=== PATIENT | male | born 1935 | race Caucasian/White ===

== ENCOUNTER 2017-09-05 09:47 | Emergency (ER) | payer MEDICARE, OTHER ==
--- NOTE | 2017-09-05 10:27 | ED Physician Documentation ---
History of Present Illness - Stated complaint Stated Complaint: HI BP - Chief complaint Chief Complaint: General - History obtained from History obtained from: Patient, Family - History of Present Illness Timing: Today - Additonal information Additional information: 81-year-old otherwise healthy male has developed a feeling of lightheadedness and dizziness and today he checked his blood pressure it was 165/95 and he is coming to the emergency department concerned about the elevation in his blood pressure. Yesterday he did have excessive physical activity he mowed his lawn and help move some furniture his seems quite concerned about the amount of activity he did and she wants him to rest today. The patient himself states that he does not usually feel this way and he is not very good about drinking fluids. Review of Systems Constitutional: denies: Fever, Chills, Myalgias, Fatigue Eyes: denies: Decreased vision Ears: denies: Ear pain Nose: denies: Rhinorrhea / runny nose, Congestion Throat: denies: Sore throat Cardiac: denies: Chest pain / pressure, Palpitations Respiratory: denies: Dyspnea, Cough GI: reports: Diarrhea. denies: Abdominal Pain, Nausea, Vomiting, Constipation : denies: Dysuria, Frequency Skin: denies: Rash Musculoskeletal: denies: Neck pain, Back pain, Extremity pain, Extremity swelling Neurologic: reports: Other (Dizziness and lightheadedness). denies: Generalized weakness, Focal weakness, Numbness, Headache, Head injury PD PAST MEDICAL HISTORY - Past Surgical History Past Surgical History: Yes Cardiovascular: AAA - Present Medications Home Medications: Ambulatory Orders Medication Instructions Recorded Confirmed Alysha Lawler 09/05/17 - Allergies Allergies/Adverse Reactions: Allergies Allergy/AdvReac Type Severity Reaction Status Date / Time No Known Drug Allergies Allergy Verified 09/05/17 09:55 - Social History Does the pt smoke?: No Smoking Status: Never smoker Does the pt drink ETOH?: No - Immunizations Immunizations are current?: Yes PD ED PE NORMAL - Vitals Vital signs reviewed: Yes (Hypertensive mild) - General General: Alert and oriented X 3, No acute distress, Well developed/nourished - HEENT HEENT: Atraumatic, PERRL, EOMI, Other (Both TMs are markedly erythematous with retained landmarks) - Neck Neck: Supple, no meningeal sign, No bony TTP - Cardiac Cardiac: RRR, No murmur - Respiratory Respiratory: No respiratory distress, Clear bilaterally - Abdomen Abdomen: Soft, Non tender - Back Back: No CVA TTP, No spinal TTP - Derm Derm: Normal color, Warm and dry, No rash - Extremities Extremities: No deformity, No edema - Neuro Neuro: No motor deficit, No sensory deficit Eye Opening: Spontaneous Motor: Obeys Commands Verbal: Oriented GCS Score: 15 - Psych Psych: Normal mood, Normal affect Results - Vitals Vitals: Vital Signs - 24 hr 09/05/17 09:50 Temperature 36.3 C L Heart Rate 57 L Respiratory 16 Rate Blood Pressure 154/83 H O2 Saturation 99 Oxygen O2 Source Room air Procedures - IVC sono (time) 1020 Bedside IVC sono: IVC measures (cm) (1.27), IVC collapsed c insp (cm) (complete) , Dehydration (est 1 liter) PD MEDICAL DECISION MAKING - ED course Complexity details: reviewed old records, reviewed results, re-evaluated patient , considered differential, d/w patient, d/w family ED course: Previously well 81-year-old male without a history of hypertension has mildly elevated blood pressure today. He did have a significant salt load last night to include a lot of chips and [place] food and he did not drink much in the way of fluids yesterday. He is found to be dehydrated on interrogation the inferior vena cava. His blood pressure although elevated is not in the range of normal causes symptoms for anybody. I suspect his symptoms are related to his dehydration and the dehydration related to excessive activity yesterday without adequate oral intake. His blood pressure may be elevated due to the salt load and I have recommended he push the fluids and repeat blood pressure check. Departure - Departure Disposition: 01 Home, Self Care Clinical Impression: Dehydration Instructions: ED Dehydration Follow-Up: Idalia Rodriguez MD [Primary Care Provider] -
[2017-09-05 10:35] VITALS: BP 118/76
== END 2017-09-05 10:34 | disposition home or self-care (01) ==
LOC: ED 09:47
DX: E86.0 Dehydration (principal); R03.0 Elevated blood-pressure reading, without diagnosis of hypertension; I71.4 Abdominal aortic aneurysm, without rupture
CPT/HCPCS: 99283

== ENCOUNTER 2018-10-08 08:57 | Emergency (ER) | payer MEDICARE, OTHER ==
--- NOTE | 2018-10-08 10:32 | ED Physician Documentation ---
PD HPI HEENT - Stated complaint Stated Complaint: BLOODY NOSE - Chief complaint Chief Complaint: General - History obtained from History obtained from: Patient, Family - History of Present Illness Timing - onset: Today Timing - duration: Minutes Timing - details: Abrupt onset, Still present Location: Nose Associated symptoms: No: Fever, Congestion, Rhinorrhea, Trismus, Unable to swallow, Swollen nodes, Facial swelling, Headache, Cough Similar symptoms before: Has not had sx before Recently seen: Not recently seen - Additional information Additional information: Previously well 82-year-old male who is not on any medications has developed acute epistaxis this morning. His blood pressure was elevated with a diastolic of 111. His indicates that yesterday he was out in the yard again doing excessive amount of physical activity and did not drink his usual amount of fluids. Last year at about this time he had a similar episode of not feeling well had hypertension and on work-up was found to be dehydrated on interrogation the inferior vena cava and he recovered well. He had similar excessive work the day prior. PD PAST MEDICAL HISTORY - Past Medical History Past Medical History: Yes GI: GERD - Past Surgical History Past Surgical History: Yes Cardiovascular: AAA - Present Medications Home Medications: Ambulatory Orders Medication Instructions Recorded Confirmed Alysha Lawler 09/05/17 Omeprazole 10 mg PO 10/08/18 - Allergies Allergies/Adverse Reactions: Allergies Allergy/AdvReac Type Severity Reaction Status Date / Time No Known Drug Allergies Allergy Verified 10/08/18 09:29 - Social History Does the pt smoke?: No Smoking Status: Never smoker Does the pt drink ETOH?: No Does the pt have substance abuse?: No - Immunizations Immunizations are current?: Yes PD ED PE NORMAL - Vitals Vital signs reviewed: Yes (hypertensive ) - General General: Alert and oriented X 3, No acute distress, Well developed/nourished - HEENT HEENT: Atraumatic, PERRL, EOMI, Other (There is evidence of recent bleeding to the right septum) - Neck Neck: Supple, no meningeal sign - Cardiac Cardiac: RRR, No murmur - Respiratory Respiratory: No respiratory distress, Clear bilaterally - Abdomen Abdomen: Soft, Non tender - Derm Derm: Normal color, Warm and dry, No rash - Extremities Extremities: No deformity, No edema - Neuro Neuro: Alert and oriented X 3, tape controlled machine stitcher 2-12 intact, No motor deficit, No sensory deficit, Normal speech Eye Opening: Spontaneous Motor: Obeys Commands Verbal: Oriented GCS Score: 15 - Psych Psych: Normal mood, Normal affect Results - Vitals Vitals: Vital Signs - 24 hr 10/08/18 09:15 Temperature 36.1 C L Heart Rate 62 Respiratory 14 Rate Blood Pressure 146/85 H O2 Saturation 98 Oxygen O2 Source Room air Procedures - IVC sono (time) 1020 Bedside IVC sono: IVC measures (cm) (1.22), IVC collapsed c insp (cm) (complete), Dehydration (est 1 liter deficit) PD MEDICAL DECISION MAKING - ED course Complexity details: reviewed results, re-evaluated patient, considered differential, d/w patient, d/w family ED course: 82-year-old male with hypertensive related epistaxis has resolution of his epistaxis now and on interrogation of the inferior vena cava he is found to be mildly dehydrated. This is similar to presentation from 1 year ago at which time he had only the elevated blood pressure and no epistaxis and I have encouraged him again to hydrate. He did well last year without specific intervention. Departure - Departure Disposition: 01 Home, Self Care Clinical Impression: Dehydration, Epistaxis Instructions: ED Dehydration, ED Nosebleed Follow-Up: Felix Ornelas MD [Primary Care Provider] -
[2018-10-08 10:47] VITALS: BP 146/108
== END 2018-10-08 10:55 | disposition home or self-care (01) ==
LOC: ED 08:57
DX: E86.0 Dehydration (principal); R04.0 Epistaxis
CPT/HCPCS: 99282; 99283

== ENCOUNTER 2018-10-15 18:18 | Emergency (ER) | payer MEDICARE, OTHER ==
--- NOTE | 2018-10-15 18:24 | ED Physician Documentation ---
PD HPI HEENT - Stated complaint Stated Complaint: BLOODY NOSE - History obtained from History obtained from: Patient - History of Present Illness Timing - onset: Today Timing - details: Abrupt onset Location: Nose Improves: Other (The bleeding stops if he lays flat) Associated symptoms: No: Rhinorrhea Recently seen: Emergency Dept - Additional information Additional information: This is an 82-year-old man who presents with his complains that he was seen in the emergency department 3 days ago with a bloody nose. At that time his blood pressure was high. The bleeding had discontinued and they did not cauterize or anything. He was feeling better and then this morning he started bleeding from the right side of his nose again, off and on through the day. He did put some toilet paper up in his nose to try and stop the bleeding. He was also laying down flat and eventually the bleeding would stop he was putting some ice up underneath his upper lip as well. Patient does not take aspirin tablets but uses 2 [place] on a daily basis. He has had episodes of nosebleeds in the past but never saw an ENT surgeon and never had any surgery done. Review of Systems Constitutional: denies: Fever Nose: reports: Epistaxis Throat: denies: Dental pain / toothache PD PAST MEDICAL HISTORY - Past Medical History GI: GERD - Past Surgical History Past Surgical History: Yes Cardiovascular: AAA - Present Medications Home Medications: Ambulatory Orders Medication Instructions Recorded Confirmed Alysha Lawler 09/05/17 RX: Omeprazole 10 mg PO 10/08/18 - Allergies Allergies/Adverse Reactions: Allergies Allergy/AdvReac Type Severity Reaction Status Date / Time No Known Drug Allergies Allergy Verified 10/15/18 18:28 - Social History Does the pt smoke?: No Smoking Status: Never smoker Does the pt drink ETOH?: No Does the pt have substance abuse?: No - Immunizations Immunizations are current?: Yes PD ED PE NORMAL - Vitals Vital signs reviewed: Yes - General General: Alert and oriented X 3, No acute distress, Well developed/nourished - HEENT HEENT: Atraumatic, Other (The nasal mucosa on the septum is very dry in both nostrils. There is some small 2 distinct scabs on the anterior septum in the right nostril without any active bleeding.) Results - Vitals Vitals: Vital Signs - 24 hr 10/15/18 18:20 Temperature 36.6 C Heart Rate 108 H Respiratory 14 Rate Blood Pressure 140/91 H O2 Saturation 97 Oxygen O2 Source Room air PD MEDICAL DECISION MAKING - ED course ED course: Patient's bleeding is now under control. I think to try and cauterize this would actually cause greater problems when the scab fell off. We talked about ways to moisturize his nasal cavity to prevent further nosebleeds by using a saline gel or Vaseline gauze and then starting daily saline nasal sprays. Lora ent states understanding and was actually relieved that he did not need to have cautery. Departure - Departure Disposition: Home, Self Care Clinical Impression: Anterior epistaxis Condition: Good Instructions: Nosebleed Follow-Up: Felix Ornelas MD [Primary Care Provider] - Comments: Stop the [place] for the next 2 to 3 days. I would recommend the use of a saline gel (there is a product by a company called [employer]) 2-3 times a day to moisturize the septum for the next 5-7 days. May use Vaseline if you cannot find the saline gel. Start a nasal saline spray 2-3 times a day after 1 week. You should follow-up with an ear nose and throat doctor if the bleeding continues. Discharge Date/Time: 10/15/18 19:18
[2018-10-15 18:28] VITALS: BP 140/91
== END 2018-10-15 19:18 | disposition home or self-care (01) ==
LOC: ED 18:18
DX: R04.0 Epistaxis (principal)
CPT/HCPCS: 99282

== ENCOUNTER 2018-11-28 21:33 | Emergency (ER) | payer MEDICARE, OTHER ==
[2018-11-28 21:48] VITALS: BP 150/93
--- NOTE | 2018-11-28 21:56 | ED Physician Documentation ---
History of Present Illness - Stated complaint Stated Complaint: BP CONCERN - Chief complaint Chief Complaint: General - History obtained from History obtained from: Patient - History of Present Illness Timing: Other (82-year-old gentleman who has been checking his blood pressures for the last few weeks and has noted some high readings. He is also noted some normal readings. He checked his blood pressure today and it was 188/112 prompting him to check the Internet which told him to come directly to the emergency department. He has no chest pain, trouble breathing, or shortness of breath.) Review of Systems Constitutional: denies: Fever, Chills Throat: reports: Reviewed and negative Cardiac: reports: Reviewed and negative Respiratory: reports: Reviewed and negative PD PAST MEDICAL HISTORY - Past Medical History Past Medical History: Yes GI: GERD - Past Surgical History Past Surgical History: Yes Cardiovascular: Coronary stent, AAA - Present Medications Home Medications: Ambulatory Orders Medication Instructions Recorded Confirmed Alysha Selzer 1 tab PO 09/05/17 Omeprazole 10 mg PO 10/08/18 - Allergies Allergies/Adverse Reactions: Allergies Allergy/AdvReac Type Severity Reaction Status Date / Time No Known Drug Allergies Allergy Verified 11/28/18 21:48 - Social History Does the pt smoke?: No Smoking Status: Never smoker Does the pt drink ETOH?: No Does the pt have substance abuse?: No - Immunizations Immunizations are current?: Yes PD ED PE NORMAL - Vitals Vital signs reviewed: Yes - General General: Alert and oriented X 3, No acute distress - Neck Neck: Supple, no meningeal sign, No bony TTP - Cardiac Cardiac: RRR, No murmur - Respiratory Respiratory: No respiratory distress, Clear bilaterally - Abdomen Abdomen: Non tender - Extremities Extremities: No edema, No calf tenderness / cord, Other (varicose veins) - Neuro Neuro: Alert and oriented X 3, Normal speech Results - Vitals Vitals: Vital Signs - 24 hr 11/28/18 21:45 Temperature 36.9 C Heart Rate 90 Respiratory 16 Rate Blood Pressure 150/93 H O2 Saturation 96 Oxygen O2 Source Room air PD MEDICAL DECISION MAKING - ED course ED course: 82-year-old gentleman with asymptomatic elevated blood pressure. His readings show some elevated blood pressures but also some normal readings as such I am hesitant tonight and he is to see his doctor tomorrow. Departure - Departure Disposition: 01 Home, Self Care Clinical Impression: Elevated blood pressure reading in office with diagnosis of hypertension Condition: Good Record reviewed to determine appropriate education?: Yes Health Concerns: elevated BP Plan of Treatment: asyptomatic, see PMD Instructions: ED Hypertension Poss Comments: Call your doctor tomorrow to discuss her blood pressures. Return if you develop significant symptoms such as chest pain, trouble breathing, strokelike symptoms.
== END 2018-11-28 21:59 | disposition home or self-care (01) ==
LOC: ED 21:33
DX: I10 Essential (primary) hypertension (principal)
CPT/HCPCS: 99283

== ENCOUNTER 2019-03-08 06:42 | Emergency (ER) | payer MEDICARE, OTHER ==
--- NOTE | 2019-03-08 07:33 | XRAY Report ---
Reason: Chest Pain Procedure Date: 03/08/2019 Accession Number: [id number] / [id number] Procedure: XR - Chest 1 View X-Ray CPT Code: 22544 FULL RESULT: EXAM: CHEST RADIOGRAPHY EXAM DATE: 03/08/2019 07:18 AM. CLINICAL HISTORY: Chest Pain. COMPARISON: CHEST 2 VIEW PA/LAT 01/30/2016 8:48 PM. TECHNIQUE: 1 view. FINDINGS: Lungs/Pleura: No focal opacities evident. No pleural effusion. No pneumothorax. Mediastinum: Within exam limitations, the cardiomediastinal contour is normal. There is minimal atherosclerotic calcification of the aortic arch. Other: No acute osseous abnormality. IMPRESSION: No acute cardiopulmonary abnormality. RADIA
[2019-03-08] MEDS ORDERED: SODIUM CHLORIDE 0.9% 1,000 ML IV ONE (07:47)
--- NOTE | 2019-03-08 08:06 | ED Physician Documentation ---
PD HPI CHEST PAIN - Stated complaint Stated Complaint: PRESSURE MID CHEST - Chief complaint Chief Complaint: Cardiac - History obtained from History obtained from: Patient, Family - History of Present Illness Timing - onset: How many hours ago (6) Timing - onset during: Sleep Timing - duration: Hours (6) Timing - details: Now resolved Pain level max: 2 Pain level now: 0 Quality: Tightness Location: Epigastric Radiation: No: Jaw, Neck, Back, Abdominal, Left upper extremity, Right upper extremity Improved by: Nothing Worsened by: No: Exertion, Inspiration, Eating, Movement, Palpation, Position Associated symptoms: No: Shortness of air, Diaphoresis, Nausea, Vomiting, Feeling faint / dizzy, General Weakness, Palpitations, Cough Similar symptoms before: Other (Patient states he had similar symptoms when he was "dehydrated".) - Additional information Additional information: Patient states that he had an epigastric pressure this morning. States that when he stands up it moves to the lower abdomen. Does not have any cardiac history. He states that he took Alysha-[place] before going to bed last night. Currently he is asymptomatic. He also states that he took his blood pressure and it was high this morning. He has never had a cardiac stent. He has never had any heart disease. He did have an aortic aneurysm, which was repaired with a [place] graft. This was several years ago Review of Systems Constitutional: denies: Fever, Chills Ears: denies: Ear pain Nose: denies: Rhinorrhea / runny nose, Congestion Throat: denies: Sore throat Cardiac: denies: Chest pain / pressure, Palpitations Respiratory: denies: Cough GI: denies: Nausea, Vomiting, Diarrhea Skin: denies: Rash Musculoskeletal: denies: Neck pain, Back pain Neurologic: denies: Focal weakness, Numbness, Headache PD PAST MEDICAL HISTORY - Past Medical History Past Medical History: Yes Cardiovascular: Hypertension, High cholesterol GI: GERD - Past Surgical History Past Surgical History: Yes Cardiovascular: AAA - Present Medications Home Medications: Ambulatory Orders Medication Instructions Recorded Confirmed Alysha Selzer 1 tab PO 09/05/17 Omeprazole 10 mg PO 10/08/18 - Allergies Allergies/Adverse Reactions: Allergies Allergy/AdvReac Type Severity Reaction Status Date / Time No Known Drug Allergies Allergy Verified 11/28/18 21:48 - Living Situation Living Situation: reports: With family Living Arrangement: reports: At home - Social History Does the pt smoke?: No Smoking Status: Never smoker Does the pt drink ETOH?: No Does the pt have substance abuse?: No - Immunizations Immunizations are current?: Yes PD ED PE NORMAL - Vitals Vital signs reviewed: Yes - General General: Alert and oriented X 3, No acute distress - HEENT HEENT: Moist mucous membranes - Neck Neck: Supple, no meningeal sign - Cardiac Cardiac: RRR, Strong equal pulses - Respiratory Respiratory: No respiratory distress, Clear bilaterally - Abdomen Abdomen: Soft, Non tender, Non distended - Derm Derm: Warm and dry - Extremities Extremities: No edema, No calf tenderness / cord - Neuro Neuro: Alert and oriented X 3 - Psych Psych: Normal mood, Normal affect Results - Vitals Vitals: Vital Signs - 24 hr 03/08/19 03/08/19 03/08/19 06:49 07:20 08:09 Temperature 36.4 C L Heart Rate 56 L 52 L 57 L Respiratory 18 52 H 16 Rate Blood Pressure 199/84 H 184/97 H 172/98 H O2 Saturation 98 98 99 03/08/19 03/08/19 08:30 08:42 Temperature Heart Rate 54 L 55 L Respiratory 16 16 Rate Blood Pressure 186/98 H 192/94 H O2 Saturation 98 97 Oxygen O2 Source Room air - EKG (time done) 0650 Rate: Rate (enter#) (52) Rhythm: NSR [place]: Normal Intervals: Normal [place] QRS: Normal Ischemia: Normal ST segments - Labs Labs: Laboratory Tests 03/08/19 03/08/19 03/08/19 07:41 07:41 07:41 WBC 7.1 RBC 4.88 Hgb 14.6 Hct 44.5 MCV 91.2 MCH 29.9 MCHC 32.8 RDW 13.2 Plt Count 170 MPV 9.8 Neut # (Auto) 5.3 Lymph # (Auto) 1.0 L [place] # (Auto) 0.5 Eos # (Auto) 0.3 Baso # (Auto) 0.1 Absolute Nucleated RBC 0.00 Nucleated RBC % 0.0 Sodium 139 Potassium 4.4 Chloride 105 Carbon Dioxide 27 Anion Gap 7.0 BUN 21 H Creatinine 1.2 Estimated GFR (MDRD) 58 L Glucose 116 H Calcium 8.8 Total Bilirubin 0.6 AST 19 ALT 21 Alkaline Phosphatase 58 Troponin I High Sens 5.9 Total Protein 6.7 Albumin 4.0 Globulin 2.7 Albumin/Globulin Ratio 1.5 Lipase 47 - Rads (name of study) cxr Radiology: Prelim report reviewed, EMP read contemporaneously, See rad report (No acute cardiopulmonary abnormality) PD MEDICAL DECISION MAKING - ED course Complexity details: reviewed results, re-evaluated patient, considered differential (No ST elevation NM, no aortic dissection, no PE, no tension pneumothorax, no aortic aneurysm), d/w patient, d/w family ED course: Patient presents to the emergency department with more what sounds like epigastric pain, possible GERD versus gas from the Alysha-[place]? No evidence of acute coronary syndrome. No evidence of pulmonary embolus. No evidence of aortic dissection or aneurysm. Patient is asymptomatic here. Patient will follow-up with his doctor for further care. Patient counseled regarding signs and symptoms for which I believe and urgent re-evaluation would be necessary. Patient with good understanding of and agreement to plan and is comfortable going home at this time This document was made in part using voice recognition software. While efforts are made to proofread this document, sound alike and grammatical errors may occur. Departure - Departure Disposition: 01 Home, Self Care Clinical Impression: Atypical chest pain Hypertension Qualifiers: Hypertension type: unspecified Qualified Code(s): I10 - Essential (primary) hypertension Condition: Good Instructions: ED Chest Pain Atypical Unkn Cause Follow-Up: Felix Ornelas MD [Primary Care Provider] - Within 1 week Comments: The cause of your symptoms is unclear today, but does not appear related to your heart. Return if you worsen. Follow up with your doctor for further care. Discharge Date/Time: 03/08/19 08:51
[2019-03-08 08:16] LABS: BASOPHILS # (AUTO) 0.1 10^3/uL (0.0-0.1); BASOPHILS % (AUTO) 1.1 %; EOSINOPHILS # (AUTO) 0.3 10^3/uL (0.0-0.7); EOSINOPHILS % (AUTO) 3.8 %; HGB - HEMOGLOBIN 14.6 g/dL (14.0-18.0); LYMPHOCYTES % (AUTO) 13.5 %; MEAN CORPUSCULAR HEMOGLOBIN 29.9 pg (27.0-31.0); MEAN CORPUSCULAR HGB CONC 32.8 g/dL (32.0-36.0); MEAN CORPUSCULAR VOLUME 91.2 fL (80.0-94.0); MEAN PLATELET VOLUME 9.8 fL (7.4-11.4); MONOCYTES # (AUTO) 0.5 10^3/uL (0.0-1.0); MONOCYTES % (AUTO) 6.7 %; NEUTROPHILS # (AUTO) 5.3 10^3/uL (1.5-6.6); NEUTROPHILS % (AUTO) 74.3 %; PLT - PLATELET COUNT 170 10^3/uL (130-450); RED BLOOD COUNT 4.88 10^6/uL (4.70-6.10); RED CELL DISTRIBUTION WIDTH 13.2 % (12.0-15.0); WHITE BLOOD COUNT 7.1 x10^3/uL (4.8-10.8)
[2019-03-08 08:21] LABS: ALBUMIN/GLOBULIN RATIO 1.5 (1.0-2.2); BILIRUBIN,TOTAL 0.6 mg/dL (0.2-1.0); CALCIUM 8.8 mg/dL (8.5-10.3); CREATININE 1.2 mg/dL (0.6-1.2); TOTAL PROTEIN 6.7 g/dL (6.7-8.2)
[2019-03-08 08:44] VITALS: BP 192/94
== END 2019-03-08 08:51 | disposition home or self-care (01) ==
LOC: ED 06:42
DX: R07.89 Other chest pain (principal); R10.13 Epigastric pain; I10 Essential (primary) hypertension; K21.9 Gastro-esophageal reflux disease without esophagitis
CPT/HCPCS: 36415; 71045; 80053; 83690; 84484; 85025; 93005; 99284

== ENCOUNTER 2020-01-13 16:22 | Emergency (ER) | payer MEDICARE, OTHER ==
[2020-01-13] MEDS ORDERED: PROPARACAINE 0.5% OPHTH DROPS 15 ML EACHEYE STA (17:25)
--- NOTE | 2020-01-13 18:19 | ED Physician Documentation ---
PD HPI OPHTHO - Stated complaint Stated Complaint: RT EYE IRRITATION - Chief complaint Chief Complaint: Heent - History obtained from History obtained from: Patient, Family - History of Present Illness Timing - onset: How many hours ago (5) Timing - duration: Hours (5) Timing - details: Abrupt onset Pain level max: 3 Pain level now: 3 Location: Right Quality / character: Burning Associated symptoms: Redness, Swelling, Tearing Contributing factors: Wears glasses, Other (tinsley killer). No: Wears contacts Recently seen: Not recently seen Review of Systems Constitutional: denies: Fever Nose: denies: Rhinorrhea / runny nose, Congestion Skin: denies: Rash Musculoskeletal: denies: Neck pain, Back pain Neurologic: denies: Headache PD PAST MEDICAL HISTORY - Past Medical History Cardiovascular: Hypertension, High cholesterol Respiratory: None Endocrine/Autoimmune: None GI: GERD : None Psych: None Musculoskeletal: None Derm: None - Past Surgical History Past Surgical History: Yes Cardiovascular: AAA - Present Medications Home Medications: Ambulatory Orders Medication Instructions Recorded Confirmed Alysha Selzer 1 tab PO 09/05/17 Omeprazole 10 mg PO 10/08/18 Polymyxin B/Trimeth Ophth Drop 1 drops RIGHTEYE Q3H 7 Days #1 01/13/20 [Polytrim Ophth Drops] bottle - Allergies Allergies/Adverse Reactions: Allergies Allergy/AdvReac Type Severity Reaction Status Date / Time No Known Drug Allergies Allergy Verified 01/13/20 16:51 - Social History Does the pt smoke?: No Smoking Status: Never smoker Does the pt drink ETOH?: No Does the pt have substance abuse?: No - Immunizations Immunizations are current?: Yes PD ED PE NORMAL - Vitals Vital signs reviewed: Yes - General General: Alert and oriented X 3, No acute distress - HEENT HEENT: Moist mucous membranes, Other (Conjunctival injection to the right eye. Clear drainage. No fluorescein uptake. No ulcerations. Normal pH.) - Neck Neck: Supple, no meningeal sign - Derm Derm: Warm and dry - Neuro Neuro: Alert and oriented X 3 Results - Vitals Vitals: Vital Signs - 24 hr 01/13/20 01/13/20 16:51 18:35 Temperature 36.6 C 36.9 C Heart Rate 72 68 Respiratory 16 16 Rate Blood Pressure 145/79 H 162/81 H O2 Saturation 97 99 Oxygen O2 Source Room air PD MEDICAL DECISION MAKING - ED course Complexity details: considered differential, d/w patient ED course: Proparacaine was instilled in the eye, the eye was reirrigated neutral pH maintained. Discussed with poison control. We will have him follow-up with ophthalmology for further care. Will place on Polytrim ophthalmic. Patient counseled regarding signs and symptoms for which I believe and urgent re- evaluation would be necessary. Patient with good understanding of and agreement to plan and is comfortable going home at this time This document was made in part using voice recognition software. While efforts are made to proofread this document, sound alike and grammatical errors may occur. Departure - Departure Disposition: Home, Self Care Clinical Impression: Irritation of eye Condition: Good Instructions: ED Chemical Conjunctivitis Follow-Up: BARRON VILLAVICENCIO MD [Primary Care Provider] - your,eye doctor in 3 days [Other] Prescriptions: Polymyxin B/Trimeth Ophth Drop [Polytrim Ophth Drops] 1 drops RIGHTEYE Q3H 7 Days #1 bottle Comments: Follow-up with your eye doctor within 3 days. Return if you worsen. Use the antibiotic drops as prescribed. Cool compresses may help with the discomfort as well. Discharge Date/Time: 01/13/20 18:41
[2020-01-13 18:36] VITALS: BP 162/81
== END 2020-01-13 18:41 | disposition home or self-care (01) ==
LOC: ED 16:22
DX: H57.89 Other specified disorders of eye and adnexa (principal); T56.5X1A Toxic effect of zinc and its compounds, accidental (unintentional), initial encounter; X58.XXXA Exposure to other specified factors, initial encounter; Y93.H9 Activity, other involving exterior property and land maintenance, building and construction; I10 Essential (primary) hypertension
CPT/HCPCS: 99282; 99284; J3490

== ENCOUNTER 2022-03-23 12:03 | Emergency (ER) | payer MEDICARE, OTHER ==
[2022-03-23 12:36] LABS: BASOPHILS # (AUTO) 0.1 10^3/uL (0.0-0.1); BASOPHILS % (AUTO) 1.1 %; EOSINOPHILS # (AUTO) 0.3 10^3/uL (0.0-0.7); EOSINOPHILS % (AUTO) 5.3 %; HCT - HEMATOCRIT 48.4 % (42.0-52.0); HGB - HEMOGLOBIN 15.9 g/dL (14.0-18.0); LYMPHOCYTES # (AUTO) 1.3 10^3/uL (1.5-3.5); LYMPHOCYTES % (AUTO) 20.1 %; MEAN CORPUSCULAR HEMOGLOBIN 30.5 pg (27.0-31.0); MEAN CORPUSCULAR HGB CONC 32.9 g/dL (32.0-36.0); MEAN CORPUSCULAR VOLUME 92.7 fL (80.0-94.0); MEAN PLATELET VOLUME 9.7 fL (7.4-11.4); MONOCYTES # (AUTO) 0.5 10^3/uL (0.0-1.0); MONOCYTES % (AUTO) 7.4 %; NEUTROPHILS # (AUTO) 4.1 10^3/uL (1.5-6.6); NEUTROPHILS % (AUTO) 65.8 %; PLT - PLATELET COUNT 200 10^3/uL (130-450); RED BLOOD COUNT 5.22 10^6/uL (4.70-6.10); WHITE BLOOD COUNT 6.2 x10^3/uL (4.8-10.8)
[2022-03-23 12:50] LABS: ALBUMIN 4.3 g/dL (3.2-5.5); ALBUMIN/GLOBULIN RATIO 1.1 (1.0-2.2); BILIRUBIN,TOTAL 1.1 mg/dL (0.2-1.0); CALCIUM 9.4 mg/dL (8.5-10.3); CREATININE 1.1 mg/dL (0.6-1.2); POTASSIUM 4.4 mmol/L (3.5-5.0); TOTAL PROTEIN 8.1 g/dL (6.7-8.2)
--- NOTE | 2022-03-23 13:21 | XRAY Report ---
PROCEDURE: Chest 1 View X-Ray INDICATIONS: Chest pain TECHNIQUE: One view of the chest was acquired. COMPARISON: 03/08/2019 FINDINGS: Surgical changes and devices: None. Lungs and pleura: No pleural effusions or pneumothorax. Lungs are clear. Mediastinum: Mediastinal contours appear normal. Heart size is normal. Bones and chest wall: No suspicious bony lesions. Overlying soft tissues appear unremarkable. IMPRESSION: No acute cardiopulmonary findings Reviewed by: Dion Wills MD on 03/23/2022 12:20 PM [facility] Approved by: Dion Wills MD on 03/23/2022 12:20 PM [facility] Station ID: [id number]
--- NOTE | 2022-03-23 13:31 | ED Physician Documentation ---
History of Present Illness - Stated complaint Stated Complaint: WEAKNESS - Chief complaint Chief Complaint: Neuro - Additonal information Additional information: Patient 86-year-old male presenting to the emergency department with chief compl aint of generalized weakness. Reports symptoms ongoing x1 day. Particularly felt weak in his legs While pumping gas earlier today. Denies similar symptoms in the past. Denies chest pain, shortness of breath, abdominal pain. Past medical significant forHypertension, dyslipidemia, aortic aneurysm status postrepair. Review of Systems Ten Systems: 10 systems reviewed and negative Constitutional: reports: Fatigue. denies: Fever Eyes: denies: Loss of vision Ears: denies: Loss of hearing Nose: denies: Rhinorrhea / runny nose Throat: denies: Dental pain / toothache Cardiac: denies: Chest pain / pressure Respiratory: denies: Dyspnea GI: denies: Abdominal Pain : denies: Dysuria Skin: denies: Rash Musculoskeletal: denies: Neck pain PD PAST MEDICAL HISTORY - Past Medical History Cardiovascular: Hypertension, High cholesterol Respiratory: None Endocrine/Autoimmune: None GI: GERD : None Psych: None Musculoskeletal: None Derm: None - Past Surgical History Past Surgical History: Yes Cardiovascular: AAA - Present Medications Home Medications: Ambulatory Orders Medication Instructions Recorded Confirmed Alysha Selzer 1 tab PO 09/05/17 Omeprazole 10 mg PO 10/08/18 Polymyxin B/Trimeth Ophth Drop 1 drops RIGHTEYE Q3H 7 Days #1 01/13/20 [Polytrim Ophth Drops] bottle - Allergies Allergies/Adverse Reactions: Allergies Allergy/AdvReac Type Severity Reaction Status Date / Time No Known Drug Allergies Allergy Verified 03/23/22 12:13 - Social History Does the pt smoke?: No Smoking Status: Never smoker Does the pt drink ETOH?: No Does the pt have substance abuse?: No - Immunizations Immunizations are current?: Yes PD ED PE NORMAL - Vitals Vital signs reviewed: Yes - General General: Alert and oriented X 3, No acute distress, Well developed/nourished - HEENT HEENT: Atraumatic, PERRL, EOMI, Ears normal, Moist mucous membranes, Pharynx benign - Neck Neck: Supple, no meningeal sign, No bony TTP, No adenopathy, Thyroid normal, No JVD - Cardiac Cardiac: RRR, No gallop, Strong equal pulses - Respiratory Respiratory: No respiratory distress, Clear bilaterally - Abdomen Abdomen: Normal bowel sounds, Non tender - Male Male : Deferred - Rectal Rectal: Deferred - Derm Derm: Normal color - Extremities Extremities: No deformity - Neuro Neuro: Alert and oriented X 3, retail manager 2-12 intact, No motor deficit, No sensory deficit, Normal speech Results - Vitals Vitals: Vital Signs - 24 hr 03/23/22 03/23/22 03/23/22 12:10 14:49 16:00 Temperature 36.4 C L Heart Rate 84 64 64 Respiratory 16 19 20 Rate Blood Pressure 173/99 H 162/95 H 168/105 H O2 Saturation 95 98 99 03/23/22 18:00 Temperature Heart Rate 71 Respiratory Rate Blood Pressure O2 Saturation 98 Oxygen O2 Source Room air - EKG (time done) 1314 Rate: Rate (enter#) (71) Rhythm: NSR [place]: Normal Intervals: Normal [place] QRS: Normal Ischemia: Non specific changes 1539 Rate: Rate (enter#) (63) Rhythm: NSR [place]: Normal Intervals: Normal [place] QRS: Normal Ischemia: Non specific changes Compare to prior EKG: Unchanged from prior EKG - Labs Labs: Laboratory Tests 03/23/22 03/23/22 03/23/22 12:26 12:26 12:26 WBC 6.2 RBC 5.22 Hgb 15.9 Hct 48.4 MCV 92.7 MCH 30.5 MCHC 32.9 RDW 12.0 Plt Count 200 MPV 9.7 Neut # (Auto) 4.1 Lymph # (Auto) 1.3 L Stark # (Auto) 0.5 Eos # (Auto) 0.3 Baso # (Auto) 0.1 Absolute Nucleated RBC 0.00 Nucleated RBC % 0.0 D-Dimer Sodium 139 Potassium 4.4 Chloride 105 Carbon Dioxide 26 Anion Gap 8.0 BUN 17 Creatinine 1.1 Estimated GFR (MDRD) 64 L Glucose 113 H Calcium 9.4 Total Bilirubin 1.1 H AST 28 ALT 35 Alkaline Phosphatase 74 Troponin I High Sens 145.0 H* Total Protein 8.1 Albumin 4.3 Globulin 3.8 Albumin/Globulin Ratio 1.1 Lipase 36 03/23/22 03/23/22 03/23/22 14:29 14:46 18:41 WBC RBC Hgb Hct MCV MCH MCHC RDW Plt Count MPV Neut # (Auto) Lymph # (Auto) Stark # (Auto) Eos # (Auto) Baso # (Auto) Absolute Nucleated RBC Nucleated RBC % D-Dimer 672.2 H Sodium Potassium Chloride Carbon Dioxide Anion Gap BUN Creatinine Estimated GFR (MDRD) Glucose Calcium Total Bilirubin AST ALT Alkaline Phosphatase Troponin I High Sens 137.7 H* 113.8 H* Total Protein Albumin Globulin Albumin/Globulin Ratio Lipase PD MEDICAL DECISION MAKING - ED course Complexity details: reviewed old records, reviewed results, re-evaluated patient, d/w patient, d/w family, d/w bilingual sales consultant ED course: Patient 86-year-old male presenting to the emergency department with chief complaint of generalized weakness. Afebrile, he medically stable on arrival to the emergency department. No focal or lateralizing neurologic deficits. EKG as outlined above demonstrated some nonspecific changes with infrequent premature ventricular complexes.Labs obtained within normal limits or nonactionable with the exception of an elevated troponin and D-dimer. Troponin elevated at 145. Steady downtrend on rechecks. Repeat EKG nonacute. CTA was obtained which was negative for acute interthoracic pathology. Case discussed with the cardiology service at [facility]. They do recommend hospitalization and transfer as needed for cardiac work-up. In consultation with cardiology, aspirin and Plavix started. Currently awaiting bed availabilityWill be signing out to the oncoming physician, please see their documentation for further detail. Departure - Departure Disposition: 02 Transfer Acute Care Hosp Clinical Impression: NSTEMI (non-ST elevated myocardial infarction)
[2022-03-23] MEDS ORDERED: iohexoL-300 100 ML VIAL ONE (16:55)
[2022-03-23] MEDS ORDERED: iohexoL-300 100 ML VIAL IVP ONE (17:39)
--- NOTE | 2022-03-23 17:58 | CT Report ---
PROCEDURE: ANGIO CHEST W/WO INDICATIONS: Please evaluate for pulmonary embolism CONTRAST: 80ml omni 300 TECHNIQUE: After the administration of intravenous contrast, 2 mm axial images were acquired from the pulmonary apices to the posterior costophrenic angles during the arterial phase. In addition, 1 mm lung kernel and 5 mm soft tissue kernel reconstructions were performed. 3-dimensional coronal oblique maximum int ensity projection (MIP) reformats, 8 mm axial MIP, and 5 mm coronal and sagittal MPR reformats were t hen performed through the thorax. For radiation dose reduction, the following was used: automated exp osure control, adjustment of mA and/or kV according to patient size. COMPARISON: Chest plain film, 03/23/2022 FINDINGS: Image quality: Motion artifact is noted. Pulmonary arteries: Pulmonary arteries are normal in size, and demonstrate no intraluminal filling d efects to suggest central pulmonary embolism. Lungs and pleura: Lungs are clear. No pleural effusions or pneumothorax. Central and peripheral ai rways are patent. Mediastinum: Heart size is normal, without pericardial effusion. At least moderate coronary calcific ation is seen. No mediastinal or hilar adenopathy. Thoracic aorta is normal in caliber and enhanceme nt. Esophagus is normal in caliber, without hiatal hernia. Bones and chest wall: No suspicious bony lesions. Ribs and thoracic spine appear intact throughout. Age-appropriate degenerative changes are seen. There is accentuated thoracic kyphosis. No axilla ry or supraclavicular adenopathy. The thyroid is normal in size and there are no incidental findings . Abdomen: An aortic stent graft is partially seen. Visualized upper abdominal solid organs appear nor mal in the early arterial phase of enhancement. IMPRESSION: Negative for pulmonary embolism. Clear lungs. Incidental note is made of: At least moderate coronary artery calcification Partial visualization of an aortic stent graft Reviewed by: Viet Cabrera MD on 03/23/2022 4:56 PM [facility] Approved by: Viet Cabrera MD on 03/23/2022 4:56 PM [facility] Station ID: [id number]
[2022-03-23] MEDS ORDERED: CLOPIDOGREL 300 MG TABLET PO STA (18:17)
[2022-03-23] MEDS: ATORVASTATIN 40 MG TABLET PO SCH (19:44)
[2022-03-23 21:27] LABS: BILIRUBIN,URINE NEGATIVE (NEGATIVE); GLUCOSE, URINE (UA) NEGATIVE (NEGATIVE); KETONES,URINE (UA) NEGATIVE (NEGATIVE); LEUKOCYTE ESTERASE, URINE NEGATIVE (NEGATIVE); NITRITE,URINE NEGATIVE (NEGATIVE); OCCULT BLOOD,URINE NEGATIVE (NEGATIVE); PROTEIN,URINE TRACE mg/dL (NEGATIVE); UROBILINOGEN,URINE 0.2 (NORMAL) E.U./dL (NORMAL)
[2022-03-23 21:36] LABS: CLARITY,URINE CLEAR (CLEAR)
[2022-03-24] MEDS ORDERED: ASPIRIN EC 325 MG TABLET PO SCH (09:00)
[2022-03-24] MEDS: ATORVASTATIN 40 MG TABLET PO SCH (09:15)
--- NOTE | 2022-03-24 15:58 | MRI Report ---
PROCEDURE: LUMBAR SPINE WO INDICATIONS: lower extremity weakness TECHNIQUE: Noncontrast sagittal T1 spin echo and T2 fast echo, sagittal STIR, axial T1 and T2 fast spin echo thr ough the lumbar spine. In cases with scoliosis, additional coronal T2 fast spin echo may be performe d. COMPARISON: None. FINDINGS: Image quality: Excellent. Alignment and Curvature: No plain films are available for comparison. Thus, for numbering purposes, 5 lumbar type vertebral bodies will be presumed for the current report. This should be confirmed with plain film correlation prior to any lumbar spinal intervention. There is loss of normal lumbar lordo sis. 8 mm of anterolisthesis of L4 on L5. 2 mm of retrolisthesis of L2 on L3 and L3 on L4. Bone Marrow: Marrow is of normal overall signal. No acute vertebral body compression fractures. Mo derate reactive signal within the end plates adjacent to the L2-L3, L3-L4, and L4-L5 intervertebral d iscs. Mild reactive signal adjacent to the remaining thoracolumbar intervertebral discs. Spinal Cord: Conus medullaris terminates at the upper L1 level. Visualized cord demonstrates normal signal and size. Paraspinous Soft Tissues: No paravertebral masses. Incompletely visualized infrarenal abdominal aor tic aneurysm is present, measuring at least 65 mm diameter. T12-L1: Mild disc desiccation. No significant canal, nor foraminal stenosis. L1-L2: Mild disc desiccation and diffuse disc bulge. Mild facet and ligament flavum hypertrophy. M ild canal stenosis. Mild bilateral foraminal stenosis. L2-L3: Severe disc height loss and desiccation. Moderate diffuse disc bulge/osteophyte. Mild facet and ligament flavum hypertrophy. Mild epidural lipomatosis. Mild canal stenosis. Moderate left great er than right foraminal stenosis. L3-L4: Moderate disc height loss and desiccation. Mild diffuse disc bulge/osteophyte. Mild bilatera l facet and ligament flavum hypertrophy. Mild canal stenosis. Moderate bilateral foraminal stenosis. L4-L5: Severe disc height loss and desiccation. Mild diffuse disc bulge. Mild facet and ligament fl avum hypertrophy. Severe canal stenosis. Moderate subarticular foraminal stenosis bilaterally. L5-S1: Moderate disc height loss and desiccation. Mild diffuse disc bulge with superimposed left fa r lateral broad-based protrusion. Mild bilateral facet hypertrophy. Mild canal stenosis. Mild right a nd moderate to severe left foraminal stenosis. Left L5 nerve root compression. IMPRESSION: 1. Incompletely visualized infrarenal aortic aneurysm, measuring at least 65 mm short axis. Initial f urther assessment with ultrasound is recommended. 2. Multilevel degenerative disc and facet disease, in addition to epidural lipomatosis and ligamentum flavum hypertrophy. 3. Multilevel canal stenoses, worst at L4-L5 where there is severe canal stenosis. 4. Multilevel foraminal stenoses, worst at L5-S1 where there is associated intraforaminal nerve root compression. Recommend correlation with clinical symptoms to ascertain relevance of this finding. Reviewed by: Dre Paul MD on 03/24/2022 3:57 PM PST Approved by: Dre Paul MD on 03/24/2022 3:57 PM PST Station ID: [id number]
[2022-03-24] MEDS: ASPIRIN EC 325 MG TABLET PO SCH (20:03)
[2022-03-25] MEDS: ATORVASTATIN 40 MG TABLET PO SCH (09:40)
[2022-03-25] MEDS: CLOPIDOGREL 75 MG TABLET PO SCH (09:40)
[2022-03-25] MEDS: METOPROLOL SUCCINATE 25 MG TABLET PO SCH (09:40)
--- NOTE | 2022-03-25 11:31 | Ultrasound Report ---
PROCEDURE: Duplex Aorta Complete INDICATIONS: AAA TECHNIQUE: Color and pulse Doppler interrogation was performed of the aorta and iliac arterial systems, with josh ge documentation. COMPARISON: None. FINDINGS: Aorta: 49 cm/sec, with triphasic flow. Patent aortoiliac endograft is present. Proximal mid and dis trenton portions of the aorta measure 2.9 x 2.9 cm, 2.9 x 2.6 cm and 6.3 x 6.3 cm respectively. Right lower extremity: Proximal common iliac artery: 53cm/sec, with triphasic flow. Distal common iliac artery: Nonvisualized Proximal external iliac artery: Nonvisualized Distal external iliac artery: 70 cm/sec, with triphasic flow. Common femoral artery: 62 cm/sec, with triphasic flow. Mejia-scale imaging description: Scattered plaque Left lower extremity: Proximal common iliac artery: 38 cm/sec, with biphasic flow. Distal common iliac artery: Not visualized Proximal external iliac artery: Nonvisualized Distal external iliac artery: 69 cm/sec, with biphasic flow. Common femoral artery: 78 cm/sec, with biphasic flow. Mejia-scale imaging description: Scattered plaque. IMPRESSION: Distal aortic aneurysmal dilation. No hemodynamically significant stenosis within the limited visualized portions of the common and exte rnal iliac as well as common femoral arteries bilaterally. The above findings are concordant with preliminary report. Reviewed by: Sarah Modi MD on 03/25/2022 11:29 AM PST Approved by: Sarah Modi MD on 03/25/2022 11:29 AM PST Station ID: [id number]
[2022-03-25] MEDS: ASPIRIN EC 325 MG TABLET PO SCH (11:36)
--- NOTE | 2022-03-25 13:03 | ED Physician Documentation ---
ED Addendum - Addendum Addendum: 03/25/22 13:01 The patient was comfortable in bed with his bedside. He is in a hospital bed. He denies any chest pain, dyspnea, orthopnea, edema. He still says he feels a bit weak in the legs but he is able to move them around well. No edema noted. Good sensation and movement symmetrically. Good color and capillary refill. We are still awaiting word for any bed availability. Update this morning from [facility] was no beds available as of that time. I do not see any obvious change in treatment per se.
[2022-03-26] MEDS ORDERED: PANTOPRAZOLE 40 MG TABLET PO STA (08:02)
[2022-03-26] MEDS: METOPROLOL SUCCINATE 25 MG TABLET PO SCH (08:48)
[2022-03-26] MEDS: CLOPIDOGREL 75 MG TABLET PO SCH (08:48)
[2022-03-26] MEDS: ASPIRIN EC 325 MG TABLET PO SCH (08:48)
[2022-03-26] MEDS: ATORVASTATIN 40 MG TABLET PO SCH (08:48)
--- NOTE | 2022-03-26 11:51 | ED Physician Documentation ---
ED Addendum - Addendum Addendum: Subjective:Patient denies chest pain or shortness of breath. Denies ever having the symptoms. Objective:Vital signs stable, troponin continues to decrease Assessment:Bilateral leg weakness, abnormal troponin Plan:Patient is awaiting echo that is ordered for today. Remains on wait list. 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 Depending on results of echo may consider reconsulting up with cardiology service at [facility] that is who previously recommended he be admitted. 03/26/22 18:47 Unfortunately patient's echo was not performed today. Patient is getting frustrated with still being in the emergency department. I explained that I am back again tomorrow morning and we will try to make it a priority to get his echo completed so that we can reach back out to cardiology to see if this patient does in fact need to be transferred for further cardiac work-up. Patient continues to deny chest pain or difficulty breathing.
[2022-03-27] MEDS: METOPROLOL SUCCINATE 25 MG TABLET PO SCH (09:15)
[2022-03-27] MEDS: ASPIRIN EC 325 MG TABLET PO SCH (09:15)
[2022-03-27] MEDS: CLOPIDOGREL 75 MG TABLET PO SCH (09:15)
[2022-03-27] MEDS: ATORVASTATIN 40 MG TABLET PO SCH (09:15)
--- NOTE | 2022-03-27 09:41 | ED Physician Documentation ---
ED Addendum - Addendum Addendum: Patient remains feeling well this morning, is eager to go home. Echocardiogram has been completed this morning and results have been scanned in. I have reviewed these results which indicate a decreased EF of 35% and some areas of wall motion abnormality.He remains chest pain-free and denies any difficulty breathing. He has been able to ambulate to the bathroom. Patient is agreeable to plan to reconsult cardiology today for further direction as patient remains on [facility] waiting list with no indication of transfer to occur anytime soon particularly as his troponins have continued to decrease. 03/27/22 09:05 D/W Dr. Heath (Cardiology at [facility]). I reviewed his presentation, labs including troponins as well as echocardiogram results. She agrees with our management thus far and expresses Sympathy that we have not been able to transfer the patient to get to a facility with cardiology capabilities.She recommends that we discharge the patient at this time and that he can be seen in their office as an outpatient and that she will have a discussion with patient with family members present For risks and benefits of cardiac catheterization in an 82-year-old. Scheduled cardiology has made an appointment with the patient for April 01 at 1 PM. I have sent prescriptions for aspirin, Plavix, metoprolol, atorvastatin To his pharmacy and Reiterated importance of medication compliance. Patient is advised on strict return precautions should he develop any chest pain, difficulty breathing, increased weakness or have any concerns. He is also agreeable to plan for discharge at this time. Departure - Departure Disposition: 01 Home, Self Care Clinical Impression: Spinal stenosis at L4-L5 level, Elevated troponin, Abnormal echocardiogram Condition: Stable Instructions: Heart Attack Warning Signs, ED Neck Back Pain General Follow-Up: BARRON VILLAVICENCIO MD [Physician No Access] - Latisha Heath MD [Physician No Access] - Prescriptions: Atorvastatin Calcium [Lipitor] 80 mg PO DAILY #30 tablet Clopidogrel [Plavix] 75 mg PO DAILY #30 tablet Aspirin [[place] Aspirin] 81 mg PO DAILY #30 ea Metoprolol Succinate [Toprol Xl] 25 mg PO DAILY #30 tablet Comments: You were evaluated for leg weakness and found to have severe spinal canal stenosis at the levels of L4 and L5. You also had abnormalities with lab work in regards to a cardiac marker called a troponin.It was concerning for a possible heart attack but fortunately the numbers have continued to come down to a normal range. We have tried to transfer you to a facility where there is a engineer internship but unfortunately have not been able to do so yet due to a region wide bed shortage.You did have an ultrasound today which did show weakening of your heart with how it is pumping and functioning. I did review your case with a engineer internship through [facility] named Dr. Heath. She feels it is okay that we discharge you home today and have you follow-up as an outpatient. Her office has made an appointment for you on April 01 at 1 PM (You should arrive at [phone] to fill out new patient paperwork). You should also follow-up with your primary care doctor. I have sent prescriptions for Medications we use with cardiac patients to [facility] in [place]. If you at any time you develop chest pain or difficulty breathing please call 911 or return to the ER. If you develop any worsening symptoms at all in regards to your leg weakness or back pain please also consider return to the emergency department. Dr. Heath Address: [address] [place] [id number] April 01 at 1:00 PM (arrive at 12:30 to complete paperwork). * Please cancel if you cannot make this appointment or make arrangements to see another [employer] Internship Discharge Date/Time: 03/27/22 10:24
[2022-03-27 10:26] VITALS: BP 135/94
== END 2022-03-27 10:24 | disposition home or self-care (01) ==
LOC: ED 12:03
DX: I21.4 Non-ST elevation (NSTEMI) myocardial infarction (principal); R93.1 Abnormal findings on diagnostic imaging of heart and coronary circulation; I34.0 Nonrheumatic mitral (valve) insufficiency; I49.3 Ventricular premature depolarization; I71.43 Infrarenal abdominal aortic aneurysm, without rupture; M51.36 Other intervertebral disc degeneration, lumbar region; M48.061 Spinal stenosis, lumbar region without neurogenic claudication; I10 Essential (primary) hypertension; E78.5 Hyperlipidemia, unspecified; K21.9 Gastro-esophageal reflux disease without esophagitis
CPT/HCPCS: 36415; 71045; 71275; 72148; 80053; 81003; 83690; 84484; 85025; 85379; 87635; 93005; 93306; 93978; 99284; 99285; A9270; Q9967; 81001; 87086